=== PATIENT | male | born 1960 | race Caucasian/White ===

== ENCOUNTER → 2025-04-07 | Outpatient (REF) | payer BC ==
[2025-04-07 18:03] LABS: APPEARANCE, URINE CLEAR (CLEAR); BACTERIA, URINE AUTO NEGATIVE (NEGATIVE); BILIRUBIN, URINE AUTO NEGATIVE (NEGATIVE); BLOOD, URINE BLOOD NEGATIVE (NEGATIVE); GLUCOSE, URINE (UA) AUTO NEGATIVE (NEGATIVE); KETONE, URINE AUTO NEGATIVE (NEGATIVE); LEUKOCYTE ESTERASE, URINE AUTO NEGATIVE (NEGATIVE); MUCUS, URINE SMALL (NEGATIVE); NITRITE, URINE AUTO NEGATIVE (NEGATIVE); PROTEIN, URINE AUTO NEGATIVE (NEGATIVE); RBC, URINE AUTO 0 /HPF (0-3); SPECIFIC GRAVITY URINE AUTO 1.017 (1.002-1.035); SQUAMOUS EPITHELIAL CELL UR AU 0 /HPF (0-6); UROBILINOGEN, URINE AUTO 0.2 mg/dL (0.0-2.0); WBC, URINE AUTO 0 /HPF (0-3)
== END ==
LOC: M SMT 16:53
PROVIDERS: ATTEND Nurse Practitioner Family
DX: N43.3 Hydrocele, unspecified (principal)

== ENCOUNTER 2025-07-07 08:45 | Day surgery (SDC) | payer BC ==
[~2025-07-07] VITALS: Ht 175.3 cm; Wt 116.2 kg
[~2025-07-07 08:45] MED LIST: ECOT81TA5 PO; HUMA100I5; HYDR50TAB; INSULANT; LOSA100T46; ROSU40TA81
[2025-07-07] MEDS ORDERED: LIDOCAINE 2% 100 MG/5 ML SDV (FOR ANES.) As Ordered ONE (09:58)
[2025-07-07] MEDS ORDERED: MIDAZOLAM INJ 2 MG/2 ML VIAL As Ordered ONE (09:59)
[2025-07-07] MEDS: ceFAZolin SOD 2 GM IV ONCE IV ONE (10:13)
[2025-07-07] MEDS ORDERED: ACETAMINOPHEN 1000MG/100ML IV BAG As Ordered ONE (10:21)
[2025-07-07] MEDS ORDERED: ONDANSETRON 4MG/2ML VIAL As Ordered ONE (10:28)
[2025-07-07] MEDS: LIDOCAINE 1% SDV 30 ML VIAL As Ordered ONE (10:58)
[2025-07-07] MEDS ORDERED: ONDANSETRON 4MG/2ML VIAL IV PRN (11:05)
[2025-07-07] MEDS ORDERED: LR 1,000 ML IV SCH (11:05)
[2025-07-07] MEDS: HYDROMORPHONE HCL 0.5 MG/0.5 ML SYRINGE IV PRN (11:21)
[2025-07-07 11:52] VITALS: BP 157/74; TEMP 97; O2SAT 94
[2025-07-07] MEDS ORDERED: OXYC1TAB23 PO (12:37)
[2025-07-07] MEDS ORDERED: CEPH500C PO (12:37)
== END 2025-07-07 14:11 | disposition home or self-care (01) ==
LOC: M SDC 08:45
PROVIDERS: ATTEND Urology
DX: N43.3 Hydrocele, unspecified (principal); E10.9 Type 1 diabetes mellitus without complications; I10 Essential (primary) hypertension; E78.00 Pure hypercholesterolemia, unspecified; Z79.899 Other long term (current) drug therapy; Z79.4 Long term (current) use of insulin; Z87.891 Personal history of nicotine dependence
CPT/HCPCS: 55040; 88302; J0131; J0665; J0688; J1171; J2250; J2405; J3010